=== PATIENT | male | born 1960 | race Caucasian/White ===

== ENCOUNTER 2021-04-29 10:06 | Outpatient (CLI) | payer BC, SELFPAY ==
--- NOTE | ~2021-04-29 | XR_ITS ---
XR thoracic spine 3V DATE: 04/29/2021 10:45 INDICATION: Mid back pain TECHNIQUE: AP, lateral, swimmer views COMPARISON: None FINDINGS: There is mild levoscoliosis of the thoracic spine. There is mild degenerative spurring. No fracture or dislocation or bone destruction. The thoracic pedicles are intact. No paraspinal soft tis abilio thickening. IMPRESSION: Mild levoscoliosis Mild degenerative spurring Reviewed, dictated and finalized at location A.
--- NOTE | ~2021-04-29 | XR_ITS ---
XR hip RT min 2V 04/29/2021 10:45 Indication: Right hip pain Procedure: 2 views right hip Comparison: No prior studies for comparison. Findings: There is mild osteoarthritis of the right hip. No fracture, subluxation or dislocation. No significant soft tissue abnormality. Sacral foramen are symmetric. Impression: 1: Mild osteoarthritis of the right hip. Reviewed, dictated and finalized at location A. Impression: 1: Mild osteoarthritis of the right hip.
[2021-04-29 10:20] LABS: Basophils Absolute Auto 0.05 K/mm3 (0.00-0.10); Basophils Percent Auto 0.8 % (0.0-1.0); Eosinophils Absolute Auto 0.45 K/mm3 (0.02-0.50); Eosinophils Percent Auto 7.3 % (1.0-6.0); Hematocrit 43.5 % (40.0-54.0); Hemoglobin 14.4 g/dL (14.0-18.0); Immature Granulocyte Absolute 0.01 K/mm3 (0.00-0.00); Immature Granulocyte Percent A 0.2 % (0.0-0.0); Lymphocytes Absolute Auto 1.97 K/mm3 (1.10-4.50); Mean Corpuscular HGB Conc 33.1 g/dL (32.0-36.0); Mean Corpuscular Hemoglobin 30.4 pg (27.0-31.0); Mean Corpuscular Volume 91.8 fL (78.0-102.0); Mean Platelet Volume 10.5 fl (8.7-11.0); Monocytes Absolute Auto 0.61 K/mm3 (0.10-0.90); Monocytes Percent Auto 9.9 % (2.0-11.0); Neutrophils Absolute Auto 3.1 K/mm3 (1.7-7.2); Neutrophils Percent Auto 49.8 % (50.0-70.0); Platelet Count Result 210 K/mm3 (150-420); Red Blood Count 4.74 M/mm3 (4.70-6.10); Red Cell Distribution Width 12.6 % (11.6-14.4); White Blood Count 6.2 K/mm3 (4.8-10.8)
[2021-04-29 11:07] LABS: Alanine Aminotransferase 31 U/L (16-63); Albumin Level 4.1 g/dL (3.4-5.0); Alkaline Phosphatase 69 U/L (46-116); Anion Gap 10 mmol/L (8-16); Aspartate Amino Transferase 25 U/L (15-37); Bilirubin,Total 0.8 mg/dL (0.00-1.00); Blood Urea Nitrogen 21 mg/dL (7-18); Calcium 8.9 mg/dL (8.5-10.1); Carbon Dioxide 27 mmol/L (21-32); Chloride 105 mmol/L (98-108); Cholesterol 224 mg/dL (0-200); Estimated Glomerular Filt Rate > 60; Glucose 102 mg/dL (70-99); HDL Direct 72 mg/dL (40-60); LDL Cholesterol Calculated 142 mg/dL (<130); Osmolality Calculated 297 mOsm/kg (285-295); Potassium 4.5 mmol/L (3.5-5.1); Sodium 142 mmol/L (136-145); Thyroid Stimulating Hormone 1.64 uIU/mL (0.36-3.74); Total Protein 6.7 g/dL (6.4-8.2); Triglycerides 51 mg/dL (0-150)
[2021-04-29 11:12] LABS: CRP < 0.2 mg/dL (0.0-0.9)
[2021-04-29 11:19] LABS: Appearance Urine Clear (Clear); Bilirubin Urine Negative (Negative); Color Urine Light Yellow (Yellow); Glucose Urine UA Negative (Negative); Ketones Urine Negative (Negative); Leukocyte Esterase Ur Negative (Negative); Nitrate Urine Negative (Negative); Protein Urine Negative (Negative); Specific Grav Ur >= 1.030 (1.010-1.020); Urobilinogen Urine 0.2 mg/dL (0.2-1.0); pH Urine 5.5 (5.0-8.0)
[2021-04-29 11:23] LABS: Add Urine Microscopic? YES; Blood Urine Trace-Intact (Negative); RBC Urine None seen /hpf (0-2); WBC Urine None seen /hpf (0-3)
[2021-04-29 11:24] LABS: Bacteria Urine None seen /hpf
[2021-05-02 06:39] LABS: SARS-CoV-2 IgG <1.00 Index (<1.00)
== END 2021-04-29 10:07 | disposition home or self-care (01) ==
LOC: CHSLAB 10:09
PROVIDERS: PCP Internal Medicine; Visit Provider Internal Medicine
DX: Z00.00 Encounter for general adult medical examination without abnormal findings (principal); M25.551 Pain in right hip; M54.9 Dorsalgia, unspecified; Z20.822 Contact with and (suspected) exposure to COVID-19
CPT/HCPCS: 36415; 72072; 73502; 80053; 80061; 81001; 84443; 85025; 86140; 86769

== ENCOUNTER 2021-05-01 12:44 | Outpatient (CLI) | payer BC, SELFPAY ==
[2021-05-01 12:58] LABS: Appearance Urine Clear (Clear); Bilirubin Urine Negative (Negative); Color Urine Light Yellow (Yellow); Glucose Urine UA Negative (Negative); Ketones Urine Negative (Negative); Leukocyte Esterase Ur Negative (Negative); Nitrate Urine Negative (Negative); Protein Urine Negative (Negative); Specific Grav Ur <= 1.005 (1.010-1.020); Urobilinogen Urine 0.2 mg/dL (0.2-1.0)
[2021-05-01 13:05] LABS: Add Urine Microscopic? YES; Bacteria Urine None seen /hpf; Blood Urine Trace-Intact (Negative); RBC Urine 0-2 /hpf (0-2); Squamous Epithelial Cell Urine None seen /hpf (Few); WBC Urine 0-3 /hpf (0-3)
== END 2021-05-01 12:45 | disposition home or self-care (01) ==
LOC: CHSLAB 12:46
PROVIDERS: PCP Internal Medicine; Visit Provider Internal Medicine
DX: R31.9 Hematuria, unspecified (principal)
CPT/HCPCS: 81001

== ENCOUNTER 2021-06-30 08:59 | Outpatient (CLI) | payer BC, SELFPAY | END 2021-06-30 09:00 | disposition home or self-care (01) | LOC: ANHBWCAUD 09:00 | PROVIDERS: PCP Internal Medicine; Visit Provider Otolaryngology | DX: H93.13 Tinnitus, bilateral (principal); H93.8X9 Other specified disorders of ear, unspecified ear; H90.3 Sensorineural hearing loss, bilateral | CPT/HCPCS: 92557; 92567 ==